=== PATIENT | female | born 1980 ===

== ENCOUNTER 2022-04-15 09:53 | Day surgery (SDC) | payer SELFPAY ==
[2022-04-15 11:43] LABS: Basophils % (Auto) 0.2 % (0.0-1.8); Eosinophils # (Auto) 0.4 K/mm3 (0.0-0.4); Eosinophils % (Auto) 6.7 % (0.0-4.3); Hematocrit 29.3 % (30.3-42.9); Hemoglobin 9.4 gm/dl (10.1-14.3); Lymphocytes % (Auto) 16.8 % (13.4-35.0); Mean Corpuscular HGB Conc 32 % (30-34); Mean Corpuscular Volume 79 fl (79-97); Monocytes # (Auto) 0.4 K/mm3 (0.0-0.8); Monocytes % (Auto) 7.3 % (0.0-7.3); Platelet Count 239 K/mm3 (140-440); Red Blood Count 3.71 M/mm3 (3.65-5.03)
[2022-04-15 11:48] LABS: Red Cell Distribution Width 23.3 % (13.2-15.2)
[2022-04-15 11:52] LABS: INR 0.92 (0.87-1.13)
[2022-04-15 11:53] LABS: Partial Thromboplastin Time 30.7 Sec. (24.2-36.6)
[2022-04-15 12:07] LABS: Alanine Aminotransferase 9 units/L (7-56); Albumin 3.8 g/dL (3.9-5); Blood Urea Nitrogen 6 mg/dL (7-17); Calcium 8.5 mg/dL (8.4-10.2); Hemolysis Index 8
[2022-04-15 12:15] LABS: BUN/Creatinine Ratio 15
--- NOTE | 2022-04-15 16:53 | Emergency Department Report ---
<ALANNAH GOODWIN L - Last Filed: 04/15/22 17:42> ED Female HPI - General Chief complaint: Vaginal Bleeding Stated complaint: VAGINAL BLEEDING/FIBROIDS Source: patient Mode of arrival: Ambulatory Limitations: No Limitations - History of Present Illness Initial comments: 41-year-old female presents to the ED complaining of vaginal bleeding and abdominal pain x1 day. Patient was is currently being followed by [facility]. Patient was recently hospitalized at [facility] for anemia. Patient states that she was evaluated [facility] x2 days ago and was told to return to the ED for any vaginal bleeding. She was informed that she had a urine fibroid that needed to be surgically removed and was waiting outpatient surgery. Patient states that vaginal bleeding 1-2 pads per hour. Patient states that she has abdominal cramping. Patient is alert and oriented x3. No acute distress noted. No ill appearance noted.Dr Toscano and surgical device sales representative transport patient to surgery stable. Abnormal Lab Results 04/15/22 04/15/22 04/15/22 10:58 10:58 10:58 WBC 6.1 RBC 3.71 Hgb 9.4 L Hct 29.3 L MCV 79 MCH 25 L MCHC 32 RDW 23.3 H Plt Count 239 Lymph % (Auto) 16.8 Sanders % (Auto) 7.3 Eos % (Auto) 6.7 H Baso % (Auto) 0.2 Lymph # (Auto) 1.0 L Sanders # (Auto) 0.4 Eos # (Auto) 0.4 Baso # (Auto) 0.0 Seg Neutrophils % 69.0 Seg Neutrophils # 4.2 PT 13.3 INR 0.92 APTT 30.7 Sodium 142 Potassium 4.0 Chloride 107.8 H Carbon Dioxide 19 L Anion Gap 19 BUN 6 L Creatinine 0.4 L Estimated GFR > 60 BUN/Creatinine Ratio 15 Glucose 74 Calcium 8.5 Total Bilirubin 0.40 AST 17 ALT 9 Alkaline Phosphatase 61 Total Protein 6.0 L Albumin 3.8 L Albumin/Globulin Ratio 1.7 HCG, Quant Blood Type Antibody Screen 04/15/22 04/15/22 10:58 10:58 WBC RBC Hgb Hct MCV MCH MCHC RDW Plt Count Lymph % (Auto) Sanders % (Auto) Eos % (Auto) Baso % (Auto) Lymph # (Auto) Sanders # (Auto) Eos # (Auto) Baso # (Auto) Seg Neutrophils % Seg Neutrophils # PT INR APTT Sodium Potassium Chloride Carbon Dioxide Anion Gap BUN Creatinine Estimated GFR BUN/Creatinine Ratio Glucose Calcium Total Bilirubin AST ALT Alkaline Phosphatase Total Protein Albumin Albumin/Globulin Ratio HCG, Quant < 1 Blood Type A POSITIVE Antibody Screen Negative MD Complaint: vaginal bleeding Onset/Timin -: days(s) Severity scale (0 -10): 7 Quality: cramping Consistency: intermittent Improves with: none Worsens with: none - Related Data Allergies Allergy/AdvReac Type Severity Reaction Status Date / Time No Known Allergies Allergy Unverified 04/15/22 10:39 ED Review of Systems Constitutional: denies: chills, fever Eyes: denies: eye pain, eye discharge, vision change ENT: denies: ear pain, throat pain Respiratory: denies: cough, shortness of breath, wheezing Cardiovascular: denies: chest pain, palpitations Endocrine: no symptoms reported Gastrointestinal: denies: abdominal pain, nausea, diarrhea Genitourinary: denies: urgency, dysuria, discharge Musculoskeletal: denies: back pain, joint swelling, arthralgia Skin: denies: rash, lesions Neurological: denies: headache, weakness, paresthesias Psychiatric: denies: anxiety, depression Hematological/Lymphatic: denies: easy bleeding, easy bruising ED Past Medical Hx - Past Medical History Previous Medical History?: No Additional medical history: fibroids - Surgical History Past Surgical History?: No ED Physical Exam - General Limitations: No Limitations General appearance: alert, in no apparent distress - Head Head exam: Present: atraumatic, normocephalic - Eye Eye exam: Present: normal appearance - ENT ENT exam: Present: mucous membranes moist - Neck Neck exam: Present: normal inspection - Respiratory Respiratory exam: Present: normal lung sounds bilaterally. Absent: respiratory distress - Cardiovascular Cardiovascular Exam: Present: regular rate, normal rhythm. Absent: systolic murmur, diastolic murmur, rubs, gallop - GI/Abdominal GI/Abdominal exam: Present: soft, normal bowel sounds - Extremities Exam Extremities exam: Present: normal inspection - Back Exam Back exam: Present: normal inspection - Neurological Exam Neurological exam: Present: alert, oriented X3 - Psychiatric Psychiatric exam: Present: normal affect, normal mood - Skin Skin exam: Present: warm, dry, intact, normal color. Absent: rash ED Medical Decision Making - Lab Data Result diagrams: 04/15/22 10:58 04/15/22 10:58 - Medical Decision Making 41-year-old female presents to the ED complaining of vaginal bleeding and abdominal pain x1 day. Patient was is currently being followed by [facility]. Patient was recently hospitalized at [facility] for anemia. Patient states that she was evaluated [facility] x2 days ago and was told to return to the ED for any vaginal bleeding. She was informed that she had a urine fibroid that needed to be surgically removed and was waiting outpatient surgery. Patient states that vaginal bleeding 1-2 pads per hour. Patient states that she has abdominal cramping. Patient is alert and oriented x3. No acute distress noted. No ill appearance noted. Consulted with [facility] , spoke with Dr. Goodwin new order noted for transvaginal ultrasound a nd states that she will admit patient to take to surgery. Abnormal Lab Results 04/15/22 04/15/22 04/15/22 10:58 10:58 10:58 WBC 6.1 RBC 3.71 Hgb 9.4 L Hct 29.3 L MCV 79 MCH 25 L MCHC 32 RDW 23.3 H Plt Count 239 Lymph % (Auto) 16.8 Sanders % (Auto) 7.3 Eos % (Auto) 6.7 H Baso % (Auto) 0.2 Lymph # (Auto) 1.0 L Sanders # (Auto) 0.4 Eos # (Auto) 0.4 Baso # (Auto) 0.0 Seg Neutrophils % 69.0 Seg Neutrophils # 4.2 PT 13.3 INR 0.92 APTT 30.7 Sodium 142 Potassium 4.0 Chloride 107.8 H Carbon Dioxide 19 L Anion Gap 19 BUN 6 L Creatinine 0.4 L Estimated GFR > 60 BUN/Creatinine Ratio 15 Glucose 74 Calcium 8.5 Total Bilirubin 0.40 AST 17 ALT 9 Alkaline Phosphatase 61 Total Protein 6.0 L Albumin 3.8 L Albumin/Globulin Ratio 1.7 HCG, Quant Blood Type Antibody Screen 04/15/22 04/15/22 10:58 10:58 WBC RBC Hgb Hct MCV MCH MCHC RDW Plt Count Lymph % (Auto) Sanders % (Auto) Eos % (Auto) Baso % (Auto) Lymph # (Auto) Sanders # (Auto) Eos # (Auto) Baso # (Auto) Seg Neutrophils % Seg Neutrophils # PT INR APTT Sodium Potassium Chloride Carbon Dioxide Anion Gap BUN Creatinine Estimated GFR BUN/Creatinine Ratio Glucose Calcium Total Bilirubin AST ALT Alkaline Phosphatase Total Protein Albumin Albumin/Globulin Ratio HCG, Quant < 1 Blood Type A POSITIVE Antibody Screen Negative ED Disposition Clinical Impression: Menorrhagia Qualifiers: Menorrhagia type: with regular cycle Qualified Code(s): N92.0 - Excessive and frequent menstruation with regular cycle Uterine fibroid Qualifiers: Uterine leiomyoma location: unspecified location Qualified Code(s): D25.9 - Leiomyoma of uterus, unspecified Disposition: 01 HOME / SELF CARE / HOMELESS Is pt being admited?: Yes Condition: Good <CORWIN MEJIA - Last Filed: 04/15/22 23:27> ED Review of Systems ROS: Stated complaint: VAGINAL BLEEDING/FIBROIDS Other details as noted in HPI ED Course Vital Signs 04/15/22 10:37 Temperature 98.4 F Pulse Rate 80 Respiratory 17 Rate Blood Pressure 135/87 [Left] O2 Sat by Pulse 99 Oximetry ED Medical Decision Making - Lab Data Result diagrams: 04/15/22 10:58 04/15/22 10:58 Critical care attestation.: If time is entered above; I have spent that time in minutes in the direct care of this critically ill patient, excluding procedure time. ED Disposition Is pt being admited?: Yes
--- NOTE | 2022-04-15 17:39 | Short Stay Summary ---
Short Stay Documentation Date of service: 04/15/22 Narrative H&P: Pt is a 41 year old who presents with complaint of vaginal bleeding. Pt was seen in my office on yesterday with a prolapsing fibroid. She was seen at [facility] and transfused 3 units last week secondary to severe anemia. - History Principal diagnosis: Fibroids, anemia H&P: obtained from office Past Medical History: No medical history Past Surgical History: No surgical history Social history: - Allergies and Medications Current Medications: Allergies No Known Allergies Allergy (Unverified 04/15/22 10:39) - Physical exam General appearance: no acute distress Lungs: Clear to auscultation Breasts: deferred Heart: Regular rate, Normal S1, Normal S2 Gastrointestinal: normal, normoactive bowel sounds Female Genitourinary: other (large fibroid prolapsing through cervical canal) Rectal Exam: deferred Extremities: No edema - Brief post op/procedure progress note Date of procedure: 04/15/22 Pre-op diagnosis: Vaginal bleeding, Prolapsing fibroid Post-op diagnosis: same Procedure: Vaginal myomectomy Anesthesia: GETA Findings: Large fibroid prolapsing through cervical canal with large stalk attached to fundal portion of uterus Surgeon: WILLIAM GOODWIN Estimated blood loss: other (500) Pathology: list (large amount of tissue consistent with degenerating fibroid) Specimen disposition: to lab Condition: stable - Hospital course Hospital course: unremarkable - Disposition Condition at discharge: Stable Disposition: 01 HOME / SELF CARE / HOMELESS - Discharge Diagnoses (1) Menorrhagia Status: Acute Qualifiers: Menorrhagia type: with regular cycle Qualified Code(s): N92.0 - Excessive and frequent menstruation with regular cycle Short Stay Discharge Plan Activity: advance as tolerated Weight Bearing Status: Weight Bear as Tolerated Diet: regular Follow up with: WILLIAM GOODWIN MD [Primary Care Provider] - 05/02/22 Prescriptions: Ibuprofen [Motrin 800 MG tab] 800 mg PO Q8HR PRN #30 tablet PRN Reason: Pain, Moderate (4-6) oxyCODONE /ACETAMINOPHEN [Percocet 5/325 mg] 1 tab PO Q6HR PRN #15 tablet PRN Reason: Pain, Moderate (4-6) DOXYCYCLINE Hyclate [Vibramycin CAP] 100 mg PO Q12HR 7 Days #14 capsule
[2022-04-15] MEDS ORDERED: ONDANSETRON 4 MG/2 ML INJ IV PRN (18:03)
[2022-04-15] MEDS ORDERED: HYDROmorphone 0.5 MG/0.5 ML INJ IV PRN (18:03)
[2022-04-15] MEDS ORDERED: oxyCODONE /ACETAMINOPHEN 5-325MG TAB PO PRN (18:03)
--- NOTE | 2022-04-15 18:03 | Anesthesia Day of Surgery ---
Anesthesia Day of Surgery - Day of Surgery Patient Examined: Yes Patient H&P Reviewed: Yes Patient is NPO: Yes
--- NOTE | 2022-04-15 18:03 | Anesthesia Consultation ---
Anesthesia Consult and Med Hx Date of service: 04/15/22 - Airway Anesthetic Teeth Evaluation: Good ROM Head & Neck: Adequate Mental/Hyoid Distance: Adequate Mallampati Class: Class III Intubation Access Assessment: Possibly Difficult - Pre-Operative Health Status ASA Pre-Surgery Classification: ASA2, Emergency Proposed Anesthetic Plan: General - Pulmonary Hx Smoking: No Hx Respiratory Symptoms: No - Cardiovascular System Hx Hypertension: No - Central Nervous System CVA: No - Endocrine Hx Renal Disease: No Hx Liver Disease: No Hx Insulin Dependent Diabetes: No Hx Non-Insulin Dependent Diabetes: No Hx Thyroid Disease: No - Hematic Hx Anemia: Yes (s/p recent blood transfusion; ongoing vaginal bleeding) - Additional Comments Anesthesia Medical History Comments: No prior GA.
--- NOTE | 2022-04-15 18:38 | Ultrasound Report ---
ULTRASOUND PELVIS INDICATION / CLINICAL INFORMATION: vaginal bleeding. TECHNIQUE: Transvaginal. Duplex Color Doppler used: Yes. COMPARISON: None available FINDINGS: UTERUS: 9.0 x 4.3 x 5.8 centimeters. Endometrium thickened to 2 cm. RIGHT ADNEXA: No significant ovarian cyst or mass. Normal color Doppler blood flow. Small cysts, like ly physiologic. LEFT ADNEXA: No significant ovarian cyst or mass. Normal color Doppler blood flow. Small cysts, likel y physiologic URINARY BLADDER: No significant abnormality. FREE FLUID: None. ADDITIONAL FINDINGS: At the level of the cervix, 4.6 x 2.1 x 5.3 cm hypoechoic mass is demonstrated, best seen on image 28. Surrounding hypervascularity. Portions of this mass appear to extend posterior ly. IMPRESSION: 1. Indeterminate hypoechoic cervical mass with surrounding hypervascularity, portions of the mass maribel earing to extend posteriorly.. Both benign and malignant etiologies are considered. Recommend gynecol ogical consultation to include direct visualization. Additionally, prior to definitive intervention/t issue analysis, consider better characterization with pelvic CT or MRI. Per the labels molder's notes, the patient was referred for gynecological surgical consultation following the examination attending. 2. Thickened endometrium, potentially reflective of the patient's menstrual cycle. Recommend clinical correlation. Signer Name: Krystin Bruce MD Signed: 04/15/2022 6:33 PM Workstation Name: [id number]
[2022-04-15] MEDS ORDERED: SODIUM CHLORIDE 0.9% IRR 1,500 ML BOTTLE IR ONE (20:09)
[2022-04-15] MEDS ORDERED: fentaNYL 100 MCG/2 ML INJ IV PRN (21:18)
[2022-04-15] MEDS ORDERED: diphenhydrAMINE 50 MG/ML VIAL IV PRN (21:19)
[2022-04-15] MEDS ORDERED: HYDROcodone/ACETAMINOPHEN 5-325 MG TAB PO PRN (21:50)
--- NOTE | 2022-04-15 22:16 | Post Anesthesia Evaluation ---
- Post Anesthesia Evaluation Patient Participated: Yes Airway Patent: Yes Stable Respiratory Function: Yes Nausea/Vomiting: No Temp > 96.8F: Yes Pain Manageable: Yes Adequeate Hydration: Yes Anesthesia Complications: No
[2022-04-15 22:39] VITALS: BP 145/60
[2022-04-15] MEDS ORDERED: HYDROmorphone 1 MG/1 ML INJ IV ONE (22:50)
--- NOTE | 2022-04-29 13:32 | Operative Report ---
Operative Report Operative Report: Preop diagnosis: Prolapsing uterine fibroid Postop diagnosis: Same Procedure: Vaginal myomectomy, incomplete Surgeon: Dr. Alannah Walsh EBL: 300 cc Urine output: 200 cc clear at end of the procedure IV fluids: 1100 cc LR Findings: Large vascular solid mass visible at the cervical os appeared to be approximately 7 cm in diameter, consistent with prolapsing uterine fibroid. Specimen: Portions of uterine fibroid Procedure: Patient taken to the OR with IV running and in place. She presented for ultrasound. She was placed in the dorsolithotomy position. Able Shetty catheter was inserted. A weighted speculum was placed into the vagina the cervix was visualized and anterior prolapse noted to tenaculum. Attempts were made to create a plane around the entire fibroid however, the stalk that appeared to be attaching the fibroid to the inner uterine wall was quite wide and thick and was unable to be fully traversed in a single complaint. For that reason planes were made in using Allegra clamps the stalk was clamped across the smaller portion and the rest of the tissue was then cut off using the curved [place] scissors. A stitch was placed at the area of vascularity that had been attached to the fibroid. As the tissue was being removed it began to break into pieces. Any remaining bleeding was cauterized once the fibroid was detached. There was great hemostasis at the end of this portion of the procedure. Patient was awakened and taken recovery in stable condition. The sponge lap needle instrument counts were correct x2.
== END 2022-04-15 22:30 | disposition home or self-care (01) ==
LOC: ED 09:53 → OR 22:16
PROVIDERS: ATTEND Obstetrics & Gynecology
DX: N92.0 Excessive and frequent menstruation with regular cycle (principal); D64.9 Anemia, unspecified; Z79.899 Other long term (current) drug therapy
CPT/HCPCS: 36415; 76817; 76830; 80053; 84702; 85025; 85610; 85730; 86850; 86900; 86901; 88305; 99285